=== PATIENT | female | born 2005 | race Caucasian/White ===

== ENCOUNTER 2023-03-29 11:31 | Emergency (ER) | payer MEDICAID ==
[~2023-03-29] VITALS: Ht 160 cm; Wt 51.0 kg
[2023-03-29] MEDS ORDERED: CEFTRIAXONE SODIUM 500 MG/VIAL IM ONE (11:45)
[2023-03-29] MEDS ORDERED: DOXYCYCLINE HYCLATE 100MG CAPSULE PO ONE (11:45)
[2023-03-29 11:46] VITALS: O2SAT 99
[2023-03-29 13:34] LABS: CLARITY URINE CLOUDY (CLEAR); COLOR URINE YELLOW (YELLOW); GLUCOSE URINE NEGATIVE (NEGATIVE); KETONES URINE NEGATIVE (NEGATIVE); LEUKOCYTE ESTERASE URINE 2+ (NEGATIVE); NITRITE URINE NEGATIVE (NEGATIVE); OCCULT BLOOD URINE NEGATIVE (NEGATIVE); PROTEIN URINE NEGATIVE (NEGATIVE); SPECIFIC GRAVITY URINE 1.024 (1.005-1.030); UROBILINOGEN URINE 0.2 E.U./dL (0.2-1.0)
[2023-03-29 13:38] LABS: BACTERIA URINE 1+; RBC URINE 0-2 /hpf (0-2); SQUAMOUS EPITHELIAL CELL URINE 2+ /lpf (RARE/1+); YEAST URINE NONE SEEN
[2023-03-29] MEDS ORDERED: DOXY150T5 MT (14:32)
[2023-03-29] MEDS ORDERED: CEPH500C2 MT (14:32)
[2023-03-29 14:46] VITALS: BP 112/78; PULSE 88; RESP 18; TEMP 98.7
[2023-04-01 08:07] LABS: CHLAMYDIA TRACHOMATIS NAA Negative (Negative); NEISSERIA GONORRHOEAE NAA Negative (Negative)
== END 2023-03-29 15:06 | disposition home or self-care (01) ==
LOC: ER 11:49
DX: N39.0 Urinary tract infection, site not specified (principal); Z20.2 Contact with and (suspected) exposure to infections with a predominantly sexual mode of transmission
CPT/HCPCS: 87491; 87591; 81003; 81025; 86592; 96372; 99283; J0696; Z7610

== ENCOUNTER 2024-06-06 11:43 | Emergency (ER) | payer MEDICAID ==
[~2024-06-06] VITALS: Ht 162.6 cm; Wt 55.0 kg
[~2024-06-06 11:43] MED LIST: CEPH500C2 MT; DOXY150T8 MT
[2024-06-06 11:46] VITALS: BP 117/65; PULSE 111; RESP 18; TEMP 100.4; O2SAT 100; O2SAT 99
[2024-06-06 14:40] LABS: CHLORIDE 105 mEq/L (98-107); POTASSIUM 4.1 mEq/L (3.5-5.1); SODIUM 138 mEq/L (136-145)
[2024-06-06 14:41] LABS: CALCIUM 9.5 mg/dL (8.7-10.4); CARBON DIOXIDE 25 mEq/L (21-32); HEMATOCRIT. 36.6 % (36.0-48.0); HEMOGLOBIN. 12.1 g/dL (12.0-16.0); MEAN CORPUSCULAR HEMOGLOBIN 29.9 pg (28.0-32.0); MEAN CORPUSCULAR HGB CONC 32.9 g/dL (31.0-37.0); MEAN CORPUSCULAR VOLUME 90.8 fL (81.0-99.0); MEAN PLATELET VOLUME 9.1 fl (7.4-10.4); PLATELET 223 x1000/uL (130-400); RED BLOOD CELL COUNT 4.04 mill/uL (4.2-5.4); WHITE BLOOD COUNT 10.5 x1000/uL (4.5-11.0)
[2024-06-06 14:42] LABS: DIFFERENTIAL COMMENT 1
[2024-06-06 14:46] LABS: CREATININE 0.6 mg/dL (0.6-1.0); GLUCOSE 88 mg/dL (70-105); UREA NITROGEN BLOOD 11 mg/dL (9-23)
[2024-06-06] MEDS: SODIUM CHLORIDE 0.9% 1,000 ML IV ONE (14:47)
[2024-06-06] MEDS: ONDANSETRON 4MG ODT PO STA (14:47)
[2024-06-06] MEDS: ONDANSETRON HCL 4MG/2ML INJ IV ONE (14:47)
[2024-06-06 14:52] LABS: ETHANOL BLOOD < 10 mg/dL (<10)
[2024-06-06 16:27] LABS: CLARITY URINE CLEAR (CLEAR); COLOR URINE YELLOW (YELLOW); GLUCOSE URINE NEGATIVE (NEGATIVE); KETONES URINE 2+ (NEGATIVE); LEUKOCYTE ESTERASE URINE 1+ (NEGATIVE); NITRITE URINE NEGATIVE (NEGATIVE); OCCULT BLOOD URINE NEGATIVE (NEGATIVE); PH URINE 5.5 (4.5-8.0); PROTEIN URINE NEGATIVE (NEGATIVE); SPECIFIC GRAVITY URINE 1.015 (1.005-1.030); UROBILINOGEN URINE 0.2 E.U./dL (0.2-1.0)
[2024-06-06 16:38] LABS: *AMPHETAMINES SCREEN URINE NEGATIVE (NEGATIVE); *BARBITURATES SCREEN URINE NEGATIVE (NEGATIVE); *BENZODIAZEPINES SCREEN URINE NEGATIVE (NEGATIVE); *COCAINE SCREEN URINE NEGATIVE (NEGATIVE); CANNABINOID URINE SCREEN PRESUMPTIVE POSITIVE (NEGATIVE); METHADONE URINE SCREEN NEGATIVE (NEGATIVE); OPIATES URINE SCREEN NEGATIVE (NEGATIVE); PHENCYCLIDINE URINE SCREEN NEGATIVE (NEGATIVE)
[2024-06-06 16:39] LABS: ECSTASY MDMA SCREEN URINE NEGATIVE (NEGATIVE)
[2024-06-06 16:40] LABS: ANISOCYTOSIS 1+; PLATELET ESTIMATE NORMAL
[2024-06-06 17:00] LABS: RBC URINE NONE SEEN /hpf (0-2)
[2024-06-06 17:01] LABS: BACTERIA URINE 1+; SQUAMOUS EPITHELIAL CELL URINE 1+ /lpf (RARE/1+)
== END 2024-06-06 17:46 | disposition home or self-care (01) ==
LOC: ER 11:43
DX: R10.9 Unspecified abdominal pain (principal); R11.2 Nausea with vomiting, unspecified; R50.9 Fever, unspecified
CPT/HCPCS: 80305; 80048; 81003; 81025; 80320; 85025; 36415; 93005; 96361; 96374; 99284; J2405; J7030; Z7610; G0480